=== PATIENT | female | born 1955 | race Caucasian/White ===

== ENCOUNTER → 2017-11-26 | Outpatient (CLI) | payer OTHER ==
[~2017-11-26] MED LIST: BENTYL 10 MG CA10 M1 PO; CIPRO500 MG PO; FLAGYL500 MG PO; ONDANSETRON HCL4 M2 PO; VITAMIN D1000 UNI1 PO
== END ==
LOC: M.RAD 11-19 11:12
DX: Z12.31 Encounter for screening mammogram for malignant neoplasm of breast (principal); Z01.419 Encounter for gynecological examination (general) (routine) without abnormal findings; Z78.0 Asymptomatic menopausal state

== ENCOUNTER → 2020-02-14 | Outpatient (CLI) | payer MEDICARE, OTHER | LOC: M.RAD 09:58 | PROVIDERS: ATTEND Family Medicine | DX: Z12.31 Encounter for screening mammogram for malignant neoplasm of breast (principal) ==